=== PATIENT | female | born 1955 | race African-American/Black ===

== ENCOUNTER → 2018-01-15 | Outpatient (CLI) | payer OTHER ==
[~2018-01-15] VITALS: Ht 160 cm; Wt 93.0 kg
[~2018-01-15] MED LIST: AFRIN15 ML NS; ARIPIPRAZOLE10 MG PO; ATIVAN1 MG PO; HYDROCODONE-AP1 EAC6 PO; MACROBID 100 M100 M1 PO; MICROGESTIN FE1 EACH PO; OSELB75 PO; PREDNISONE 20 M20 MG PO; PRINIVIL20 M1 PO; QUINAPRIL HCL20 MG PO; TRAMADOL 50 MG50 MG PO; TRIAMTERENE/HCT1 CA1 PO; VENTOLIN HFA 1818 GM INH; WELLBUTRIN XL300 MG PO; ZANAFLEX2 MG PO
--- NOTE | ~2018-01-15 | TEE ---
[facility] [address] [place] [address] TRANSESOPHAGEAL ECHOCARDIOGRAM Name: DEBBIE CONNOLLY Room #: REG CL [facility]#: [id number] Admission: 01/15/18 Attend Phys: Peter Melton, Discharge: Date of : 55 Date of Service: 01/15/18 0854 Report #: [id number] THIS REPORT FOR: //name// APPROVED REPORT Study performed: 01/15/2018 07:51:59 EXAM: Comprehensive 2D, Doppler, and color-flow Echocardiogram Patient Location: [facility] area Room #: 9 Status: routine BSA: 1.95 HR: 93 bpm BP: 124/74 mmHg Other Information Study Quality: Excellent Indications Mitral Valve Disease Echo Enhancing Agent Indication: Rule out Shunt Agent(s) / Amount(s) Used: Agitated Saline 7 cc Procedure After obtaining informed consent, patient underwent transesophageal echo in the [employer]. Type of Sedation : Conscious Sedation Sedation was administered by Aliyah Smith RN. Sedation start time: 805 Case end Time: 812 Sedation was achieved intravenously with: Versed (3 mg) Fentanyl (50) Transesophageal probe was inserted and advanced into esophagus without difficulty by Peter Melton MD. Echo enhancement indication: R/O Septal defect. Echo enhancement agent administered: Agitated Saline The ROCK was performed without complications. Throughout the procedure, the blood pressure, pulse oximetry, cardiac rhythm, and rate were monitored. The patient tolerated the procedure without adverse effects. Recovery from conscious sedation was uneventful and vital signs were stable. [facility] [address] [place] [address] TRANSESOPHAGEAL ECHOCARDIOGRAM Name: DEBBIE CONNOLLY TJ Room #: REG CL [facility].#: [id number] Admission: 01/15/18 Attend Phys: Peter Melton, Discharge: Date of : 55 Date of Service: 01/15/18 0854 Report #: [id number] Left Ventricle The left ventricle is normal size. There is normal LV segmental wall motion. There is normal left ventricular wall thickness. The left ventricular systolic function is normal. The left ventricular ejection fraction is within the normal range. LVEF is 55-60%. Right Ventricle The right ventricle is normal size. The right ventricular systolic function is normal. Atria Left atrium is dilated. No masses or clots in the left atrium or left atrial appendage. No shunting by contrast bubble injection Right atrium is at the upper limits of normal. Prominent eustachian valve in right atrium Aortic Valve The aortic valve is normal in structure, trileaflet. No aortic regurgitation is present. There is no aortic valvular stenosis. Mitral Valve The mitral valve is normal in structure. Moderate, central mitral regurgitation. No evidence of mitral valve stenosis. Tricuspid Valve The tricuspid valve is normal in structure. Mild to moderate tricuspid regurgitation. Pulmonic Valve The pulmonary valve is normal in structure. There is no pulmonic valvular regurgitation. Great Vessels The aortic root is normal in size. The ascending aorta is normal in size. IVC is normal in size and collapses >50% with inspiration. Pericardium There is no pericardial effusion. <Conclusion> The left ventricular systolic function is normal. There is normal LV segmental wall motion. LVEF 55-60%. Left atrium is dilated. No masses or clots in the left atrium or left atrial appendage. [facility] [address] [place] [address] TRANSESOPHAGEAL ECHOCARDIOGRAM Name: DEBBIE CONNOLLY TJ Room #: [facility] [id number] Admission: 01/15/18 Attend Phys: Peter Melton, Discharge: Date of : 55 Date of Service: 01/15/18 0854 Report #: [id number] No shunting by contrast bubble injection The aortic valve is normal in structure, trileaflet. No aortic regurgitation or stenosis. The mitral valve is normal in structure. Moderate, central mitral regurgitation. Normal aorta There is no pericardial effusion. <ELECTRONICALLY SIGNED> By: Peter Melton MD, [facility] 01/15/18 0854 0854 0854 Peter Melton MD, FACC /INF
[2018-01-15 07:01] VITALS: BP 131/64
== END | disposition home or self-care (01) ==
LOC: CATH 01-10 11:28
DX: I05.9 Rheumatic mitral valve disease, unspecified (principal); K21.9 Gastro-esophageal reflux disease without esophagitis; F32.89 Other specified depressive episodes; Z98.890 Other specified postprocedural states; Z87.440 Personal history of urinary (tract) infections; Z88.8 Allergy status to other drugs, medicaments and biological substances; Z79.891 Long term (current) use of opiate analgesic; Z79.899 Other long term (current) drug therapy

== ENCOUNTER → 2020-02-24 | Outpatient (CLI) | payer OTHER | LOC: SJCVCIMAG 10:26 | DX: I08.1 Rheumatic disorders of both mitral and tricuspid valves (principal); R94.31 Abnormal electrocardiogram [ECG] [EKG]; I10 Essential (primary) hypertension; F31.9 Bipolar disorder, unspecified ==

== ENCOUNTER → 2020-09-17 | Outpatient (CLI) | payer OTHER | LOC: SJCVC 10:55 | PROVIDERS: ATTEND Internal Medicine Cardiovascular Disease | DX: R94.31 Abnormal electrocardiogram [ECG] [EKG] (principal); I34.0 Nonrheumatic mitral (valve) insufficiency; I11.9 Hypertensive heart disease without heart failure; R60.9 Edema, unspecified; Z79.899 Other long term (current) drug therapy ==

== ENCOUNTER 2020-11-05 20:37 | Emergency (ER) | payer OTHER ==
[~2020-11-05] VITALS: Ht 160 cm; Wt 95.3 kg
[2020-11-05] MEDS ORDERED: NEURONTIN 300M300 M2 PO (21:00)
[2020-11-05] MEDS ORDERED: MOBIC15 MG PO (21:00)
[2020-11-05] MEDS ORDERED: FLEXERIL PO (22:02)
[2020-11-05 22:03] VITALS: BP 111/72
== END 2020-11-05 22:21 | disposition home or self-care (01) ==
LOC: ER 20:37
DX: M54.5 Low back pain (principal); G89.29 Other chronic pain; I10 Essential (primary) hypertension; Z88.1 Allergy status to other antibiotic agents; Z88.8 Allergy status to other drugs, medicaments and biological substances; Z79.899 Other long term (current) drug therapy; Z98.890 Other specified postprocedural states

== ENCOUNTER 2021-03-08 20:43 | Inpatient (IN) | payer OTHER ==
[~2021-03-08] VITALS: Ht 160 cm; Wt 97.5 kg
[~2021-03-08 20:43] MED LIST changes: +FLEXERIL PO; +MOBIC15 MG PO; +NEURONTIN 300M300 M2 PO
[2021-03-08 20:44] VITALS: BP 187/87
[2021-03-08] MEDS ORDERED: NORVASC5 MG PO (20:47)
--- NOTE | 2021-03-08 21:00 | NUR ---
GAUDENCIO CONNOLLY (DAUGHTER) [phone]
[2021-03-08 21:22] LABS: HEMOGLOBIN 11.8 gm/dL (12.0-15.0)
[2021-03-08 21:24] LABS: BASOPHILS 0.4 % (0.0-2.0); HEMATOCRIT 36.5 % (37.0-47.0); LYMPHOCYTES 13.5 % (24.0-44.0); MCH 28.6 pg (26.0-34.0); MCHC 32.4 g/dL (28.0-37.0); MCV 88.4 fL (80.0-100.0); MONOCYTES 5.3 % (1.0-8.0); PLATELET COUNT 317 thou/uL (150-400); POLYS 79.8 % (36.0-66.0); RBC 4.13 mil/uL (4.20-5.00); RDW 14.1 % (10.5-14.5); WBC 17.3 thou/uL (4.0-11.0)
[2021-03-08 21:25] LABS: ANION GAP 13 mmol/L (7-16); BUN 13 mg/dL (7-18); CALCIUM 8.9 mg/dL (8.5-10.1); CHLORIDE 103 mmol/L (98-107); CO2 24 mmol/L (21-32); CREATININE 1.5 mg/dL (0.6-1.0); GLUCOSE 149 mg/dL (74-106); POTASSIUM 4.1 mmol/L (3.5-5.1); SODIUM 140 mmol/L (136-145)
[2021-03-08 21:35] LABS: ALBUMIN 3.4 g/dL (3.4-5.0); AMYLASE 109 U/L (25-115); DIRECT BILIRUBIN < 0.1 mg/dL (<0.1-0.2); LIPASE 57 U/L (73-393); SGOT 32 U/L (15-37); SGPT 20 U/L (30-65); TOTAL BILIRUBIN 0.6 mg/dL (0.2-1.0); TOTAL PROTEIN 8.1 g/dL (6.4-8.2); TROPONIN-I <0.06 ng/mL (<0.06)
[2021-03-08 23:19] LABS: URINE BILIRUBIN NEGATIVE (Negative); URINE BLOOD 1+ (Negative); URINE CLARITY CLEAR; URINE COLOR YELLOW; URINE GLUCOSE-RANDOM* NEGATIVE (Negative); URINE KETONES 1+ (Negative); URINE LEUKOCYTES-REFLEX NEGATIVE (Negative); URINE NITRITE-REFLEX NEGATIVE (Negative); URINE PROTEIN (DIPSTICK) NEGATIVE (Negative); URINE SPECIFIC GRAVITY 1.015 (1.005-1.035); URINE UROBILINOGEN 0.2 E.U./dl (0.2-1.0)
[2021-03-08 23:39] LABS: BACTERIA-REFLEX 1-9 Few /HPF (None Seen); CASTS None Seen /LPF (None Seen); CRYSTALS None Seen /LPF (None Seen); MUCUS 0-3 Light strn/LPF (None Seen); SQUAMOUS 0-3 Few /LPF (0-3); URINE RBC 3-10 Few /HPF (NONE SEEN); URINE WBC-REFLEX 0-5 Rare /HPF (0-5)
[2021-03-09 00:27] VITALS: BP 148/64
[2021-03-09 00:58] VITALS: BP 156/58
[2021-03-09 01:51] VITALS: BP 155/89
--- NOTE | 2021-03-09 02:19 | NUR ---
Pt arrived to the unit at around 1245.Pt alert and oriented. Was able to walk to the bathroom with SBA. Pt pain is at a constant 10. With pain meds the pain only drops to 7.Pain is around the RLQ area. At this point she denies any back pain. Pt with some nausea, zofran given-no emesis. She is Afebrile. No resp distress-remains on room air. IVF started. Pt settled into room,oriented to satff and use of call light. Will continue with POC till EOS.
--- NOTE | 2021-03-09 07:00 | EKG ---
[address] [place] [address] ELECTROCARDIOGRAM REPORT Name: DEBBIE CONNOLLY Room #: 444-P ADM IN M.R.#: [id number] Admission: 03/09/21 Attend Phys: Ori Wang Discharge: Date of : 55 Report #: [id number] [facility] ED Test Date: 2021-03-08 Test Time: 21:12:45 Pat Name: DEBBIE CONNOLLY Department: Room: 444 Gender: F Media Technician: [email or web address] : 1955 Requested By: Greyson Olvera Order Number: [id number] MD: Collins Gutierrez Measurements Intervals Arnett Rate: 84 P: 62 OK: 143 QRS: 0 QRSD: 95 T: 35 QT: 380 QTc: 450 Interpretive Statements Sinus rhythm Compared to ECG 04/19/2016 19:42:43 No significant changes Electronically Signed On 03-09-2021 7:00:18 CDT by Collins Gutierrez [email or web address] <ELECTRONICALLY SIGNED> By: Collins Gutierrez MD, [facility] 03/09/21 07 11 11 Collins Gutierrez MD, FACC /EPI
[2021-03-09 08:04] VITALS: BP 147/76
--- NOTE | 2021-03-09 09:03 | NUR ---
ASSESSMENT: CM REVIEWED CHART AND MET WITH PATIENT AT THE BEDSIDE. PT IS ALERT AND ORIENTED X4. PT WAS ADMITTED DUE TO RIGHT URETERAL STONE. PT IS CURRENTLY ON IV ANBX AND IV FLUIDS. PT REPORTS THAT SHE LIVES ALONE IN A HOUSE BUT STATES HER DAUGHTER IS CURRENTLY STAYING WITH HER. PT REPORTS ABOUT 4 STEPS WITH HANDRAILS TO ENTER THE HOME AND 4 STEPS WITH HANDRAILS ONCE INSIDE. PT REPORTS SHE NORMALLY AMBULATES INDEPENDENTLY BUT DOES HAVE A WALKER AT HOME IF NEEDED. PT REPORTS HAVING HH IN THE PAST BUT UNSURE THE AGENCY. PT DENIES BEING TO A SNF IN THE PAST. CM DISCUSSED ROLE. PT DOES NOT ANTICIPATE HAVING ANY NEEDS FROM CM. CM WILL CONTINUE TO FOLLOW TO ASSIST NEEDED. PT REPORTS HER PCP IS DR. MINA BRYANT.
--- NOTE | 2021-03-09 09:55 | NUR ---
ASSUMED PT CARE THIS AM. PT IS ALERT & ORIENTED X4. PT HAS IV SITE ON R FA RUNNING NS @ 100ML/HR. PT C/O OF PAIN AND NAUSEA AND GIVEN PAIN AND NAUSEA MEDICATION PER PT REQUEST. PT STATED THAT SHE HAD BM YESTERDAY. PT IS UP AD KEVIN AND HAS BATHROOM PRIVILEDGE. PLACED URINE STRAINER AND UROLOGY CONSULT PER MD REQUEST. PT STATED FEEL BETTER AFTER GIVEN MEDICATION. PT ON THE BED, BED ON THE LOWEST POSITION, SIDE RAILS UP, CALL LIGHT WITHIN REACH. WILL CONTINUE TO MONITOR PT. FOLLOW POC.
[2021-03-09 14:58] LABS: HEMATOCRIT 34.1 % (37.0-47.0); HEMOGLOBIN 11.3 gm/dL (12.0-15.0); MCH 29.7 pg (26.0-34.0); MCHC 33.1 g/dL (28.0-37.0); MCV 89.6 fL (80.0-100.0); RBC 3.8 mil/uL (4.20-5.00); RDW 14.6 % (10.5-14.5); WBC 9.5 thou/uL (4.0-11.0)
[2021-03-09 15:06] LABS: CALCIUM 8.6 mg/dL (8.5-10.1); CREATININE 1.5 mg/dL (0.6-1.0)
[2021-03-09 15:07] LABS: POTASSIUM 4.1 mmol/L (3.5-5.1)
[2021-03-09 17:30] VITALS: BP 158/83
[2021-03-09 20:00] VITALS: BP 144/74
[2021-03-10 07:10] VITALS: BP 158/86
--- NOTE | 2021-03-10 07:25 | NUR ---
I CONCUR WITH REASSMENT CHARTING BY SHANNEN CEBALLOS LPN PT CONTINUES TO HAVE PAIN IN RLQ- NOT SEVERE UPON ADMISSION. SOME SCIATICA PAIN TOO. STRAINING URINE THRO NOC-NO STONE OBSERVED.PT HAS URINARY FREQUENCY AND URGENCY.
[2021-03-10 11:07] LABS: HEMATOCRIT 31.9 % (37.0-47.0); HEMOGLOBIN 10.4 gm/dL (12.0-15.0); MCH 28.9 pg (26.0-34.0); MCHC 32.6 g/dL (28.0-37.0); MCV 88.7 fL (80.0-100.0); RBC 3.59 mil/uL (4.20-5.00); WBC 7.2 thou/uL (4.0-11.0)
[2021-03-10 11:09] LABS: CALCIUM 8.4 mg/dL (8.5-10.1); CREATININE 1.6 mg/dL (0.6-1.0); POTASSIUM 3.2 mmol/L (3.5-5.1)
[2021-03-10] MEDS ORDERED: FLOMAX0.4 MG PO (12:33)
[2021-03-10] MEDS ORDERED: CEPHALEXIN500 MG PO (12:37)
--- NOTE | 2021-03-10 13:02 | NUR ---
DISCHARGE NOTE: SW reviewed chart and spoke with nursing and attending physician. Pt is medically stable for discharge home today. SW met with pt at bedside to discuss discharge plan. Pt states she will have transportation home when discharged. No SW discharge needs identified at this time, but is available to assist should needs arise.
[2021-03-10 13:56] VITALS: BP 158/86
--- NOTE | 2021-03-10 14:33 | NUR ---
Patient signed the discharge paper; A/O, calm and cooperative. denied pain at this moment. According to Dr. Landin, the patient's perscription has been sent to the pharmacy electronically.
--- NOTE | 2021-03-10 16:11 | NUR ---
Patient discharge paper was signed, patient agreed to be discharged, but waiting for the ride. around 4 pm, patient complained pain in the abdomen area, voicing that the pain was the same as when she was admitted, asking if she would stay instead of being discharged. Dr. Landin agreed to have the patient stay if urologist agreed the patient to stay. urology called and talked to Dr. Chela Severino, Dr. York agreed the patient could stay and vcoiced that she would come to see the patient tomorrow morning.
[2021-03-10 16:29] VITALS: BP 152/86
--- NOTE | 2021-03-10 16:57 | NUR ---
Dr. York stated that if the pain can be controled through PO medication, patient will be discharged. Patient agreed to leave.
== END 2021-03-10 19:48 | disposition home or self-care (01) | DRG 872 ==
LOC: ER 20:43 → EROBS 03-09 00:07 → 4S 03-09 00:07 → EROBS 03-09 00:08 → 4S 03-09 01:00 → 4W 03-10 16:38
PROVIDERS: Emergency Medicine; Physician Assistant; Urology; ADMIT Hospitalist; ATTEND Hospitalist
DX: A41.9 Sepsis, unspecified organism (principal); N13.6 Pyonephrosis; N17.9 Acute kidney failure, unspecified; G89.29 Other chronic pain; I10 Essential (primary) hypertension; F32.9 Major depressive disorder, single episode, unspecified; K59.00 Constipation, unspecified; J45.909 Unspecified asthma, uncomplicated; D72.829 Elevated white blood cell count, unspecified; Z88.1 Allergy status to other antibiotic agents; Z88.8 Allergy status to other drugs, medicaments and biological substances; Z79.899 Other long term (current) drug therapy
CPT/HCPCS: 10195

== ENCOUNTER → 2021-09-19 | Outpatient (CLI) | payer OTHER ==
[~2021-09-19] MED LIST changes: +CEPHALEXIN500 MG PO; +FLOMAX0.4 MG PO; +NORVASC5 MG PO
== END ==
LOC: SJCVCIMAG 07:36
PROVIDERS: ATTEND Internal Medicine Cardiovascular Disease
DX: I34.0 Nonrheumatic mitral (valve) insufficiency (principal); R94.31 Abnormal electrocardiogram [ECG] [EKG]; I11.9 Hypertensive heart disease without heart failure; R60.9 Edema, unspecified; Z88.8 Allergy status to other drugs, medicaments and biological substances; Z79.82 Long term (current) use of aspirin; Z79.899 Other long term (current) drug therapy; Z72.89 Other problems related to lifestyle